=== PATIENT | female | born 1985 | race Caucasian/White ===

== ENCOUNTER 2021-07-25 11:38 | Outpatient (REF) | payer OTHER, SELFPAY ==
--- NOTE | ~2021-07-25 | MR_ITS ---
EXAMINATION: MR LUMBAR SPINE WITHOUT CONTRAST CLINICAL INFORMATION: 35-year-old with left sciatica. Peroneus longus weakness. COMPARISON: None TECHNIQUE: MRI of the lumbar spine was obtained using routine sequences without contrast. FINDINGS: Coronal Alignment: Normal. Sagittal Alignment: Normal. Lumbosacral Junction: Normal. Vertebral Bodies: Normal height. Disc Spaces and Endplates: Mild disc space height loss and disc desiccation at L5-S1. Minimal disc desiccation noted L4-L5 without significant disc space height loss. Remaining lumbar and visualized lower thoracic intervertebral disc space heights and signal are well maintained with no significant spondylosis. Endplates appear intact. Spinal Canal: No abnormal developmental findings. Bone Marrow: No significant marrow-replacing process or bone marrow edema. Conus Medullaris: Terminates at L1. Morphology and signal is normal. Intradural Nerve Roots: Within normal limits. L5-S1: There is a 2.5 mm shallow central disc protrusion with transverse annular fissuring noted, which contacts the ventral thecal sac and both S1 nerve root sleeves without nerve root compression or displacement. No significant facet arthrosis, canal or neuroforaminal stenosis. L4-L5: There is a 1.5 mm broad-based, shallow central disc protrusion with minimal flattening of the central dural sac without neural impingement. Tiny, transverse central annular fissure also noted. No significant facet arthrosis, canal or neuroforaminal stenosis. No disc bulge or herniation throughout the remainder of the study. No facet arthrosis, canal or neuroforaminal stenosis throughout the remainder of the lumbar spine. Paraspinal/Retroperitoneal: The visualized paravertebral soft tissues appear unremarkable. Visualized retroperitoneal structures are grossly within normal limits. MR/MR lumbar spine wo con IMPRESSION: 1. Mild disc degenerative change at L5-S1 and minimal at L4-L5 with mild central disc protrusions at both levels as detailed above. 2. No significant facet joint DJD, spinal canal or neuroforaminal stenosis.
== END 2021-07-25 11:39 | disposition home or self-care (01) ==
LOC: HO.MRI 11:38
PROVIDERS: Visit Provider Hospitalist
DX: M54.32 Sciatica, left side (principal); R53.1 Weakness
CPT/HCPCS: 72148